=== PATIENT | female | born 1955 | race Caucasian/White ===

== ENCOUNTER 2020-10-17 06:35 | Day surgery (SDC) | payer MEDICARE, BC ==
[2020-10-17] VITALS (16 sets, daily range): BP systolic 105–140; BP diastolic 51–96
[~2020-10-17] VITALS: Ht 170.2 cm; Wt 53.1 kg
[2020-10-17] MEDS ORDERED: normal saline 1000ml 1,000 ML IV SCH (07:20)
[2020-10-17 08:14] LABS: BASOPHILS # (AUTO) 0.1 X10'3 (0-0.2); BASOPHILS % (AUTO) 1.3 % (0-1); EOSINOPHILS # (AUTO) 0.1 X10'3 (0-0.9); HEMATOCRIT 41.1 % (35.0-45.0); HEMOGLOBIN 13.8 g/dl (12.0-16.0); LYMPHOCYTES # (AUTO) 1.4 X10'3 (1.1-4.8); LYMPHOCYTES % (AUTO) 27.8 % (21-51); MEAN CORPUSCULAR HEMOGLOBIN 31.9 PG (27.0-31.0); MEAN CORPUSCULAR HGB CONC 33.5 g/dL (33.0-36.5); MEAN CORPUSCULAR VOLUME 95.3 FL (78-98); MEAN PLATELET VOLUME 9.8 FL (7.4-10.4); MONOCYTES # (AUTO) 0.5 X10'3 (0-0.9); NEUTROPHILS % (AUTO) 58.9 % (42-75); PLATELET COUNT 219 X10'3 (140-440); RED BLOOD COUNT 4.32 X10'6 (4.20-5.60); RED CELL DISTRIBUTION WIDTH 13.6 % (11.5-14.5); WHITE BLOOD COUNT 5.1 X10'3 (4.5-11.0)
[2020-10-17] MEDS ORDERED: LEVO75TA PO (08:38)
[2020-10-17] MEDS ORDERED: midazolam 2 mg/2 ml injection ONE (08:38)
[2020-10-17] MEDS ORDERED: fentaNYL/PF 50MCG/1 ML 2ML syringe ONE (08:38)
[2020-10-17] MEDS ORDERED: gelatin sponge, absorbable (Gelfoam 100) sponge TP ONE (09:25)
[2020-10-17] MEDS ORDERED: HYDROcodone/acetaminophen 5mg/325mg tablet PO PRN ×2 (09:30)
--- NOTE | 2020-10-17 10:00 | NUR ---
Pt sitting up in bed, eating lunch tray.
--- NOTE | 2020-10-17 10:20 | NUR ---
Pt ate 100% of lunch tray and 250ml oral fluid intake.
--- NOTE | 2020-10-17 10:31 | NUR ---
X-ray at bedside
--- NOTE | 2020-10-17 11:09 | NUR ---
Pt ambulated to bathroom and voided. Pt states pain 3/10, left lower side.
--- NOTE | 2020-10-17 12:00 | NUR ---
MD aware of CXR result and states pt can discharge now.
== END 2020-10-17 12:25 | disposition home or self-care (01) ==
LOC: SSTAY O 06:35
PROVIDERS: ATTEND Radiology Vascular & Interventional Radiology
DX: R91.1 Solitary pulmonary nodule (principal); Z88.2 Allergy status to sulfonamides
CPT/HCPCS: 32405; 36415; 71045; 77012; 85025; 87070; 87102; 99152; 99153; J2250; J3010; J7030